=== PATIENT | male | born 1975 | race Caucasian/White ===

== ENCOUNTER 2023-04-10 01:50 | Emergency (ER) | payer MEDICAID ==
[~2023-04-10] VITALS: Ht 175.3 cm; Wt 83.9 kg
--- OUTSIDE RECORDS SUMMARY | 2023-04-10 01:59 | XMS ---
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 - 2 Visits in 30 Days CARE PROVIDERS There are no care providers on record at this time. Chong has no Care Guidelines for this patient. [facility]12 MO[facility] NOTE: Visits indicate total known visits. ED/C VISIT TRACKING (12 MO.) 04/10/2023 01:[address] [facility] [place] TYPE: Emergency COMPLAINT: - ABD PAIN 04/09/2023 22:32 [facility] [place] TYPE: Emergency COMPLAINT: - LT SIDE PAIN INPATIENT VISIT TRACKING (12 MO.) No inpatient visits to display in this time frame [id number]
[2023-04-10 02:40] LABS: BASOPHILS 0.7 % (0-2); EOSINOPHILS 2.1 % (0-6); HEMATOCRIT 37.7 % (35.0-50.0); HEMOGLOBIN 12.6 g/dL (12.0-18.0); LYMPHOCYTES 24.5 % (24-44); MCH 28.9 (27-36); MCHC 33.4 g/dl (30-36); MCV 86.5 fl (81-99); MONOCYTES 10.8 % (0-12); NEUTROPHILS 61.9 % (39-80); PLATELET COUNT 238 K/uL (140-440); RBC 4.36 M/ul (4.3-5.7); RDW 13.8 (10.5-15.0)
[2023-04-10 02:53] LABS: ALBUMIN 3.6 g/dL (3.4-5.0); ANION GAP 9.4 (7-21); BILIRUBIN, TOTAL 0.4 ng/dL (0.2-1.0); BUN/CREATININE RATIO 17.69 (6.0-28.6); CALCIUM 8.9 mg/dL (8.5-10.1); CREATININE, SERUM 1.13 mg/dL (0.70-1.30); POTASSIUM 3.4 mmol/L (3.5-5.1); PROTEIN, TOTAL 7.2 g/dL (6.4-8.2)
[2023-04-10 02:59] LABS: BILIRUBIN, URINE NEGATIVE (negative); BLOOD/HGB, URINE TRACE-I (Negative); KETONE, URINE NEGATIVE (Negative); LEUK ESTERASE, URINE NEGATIVE (negative); NITRITE, URINE NEGATIVE (negative)
[2023-04-10 03:07] LABS: EPITHELIAL CELLS, URINE SQUAMOUS 1+ /lpf (0-1+); WHITE BLOOD CELLS, URINE 0-1 /HPF (0-5)
[2023-04-10 03:08] LABS: BACTERIA, URINE RARE /hpf (negative); CASTS, URINE NONE SEEN \\lpf; CRYSTALS, URINE AMORPHOUS PHOSPH 4+ (0-1+); REFLEX CULTURE, URINE No (No)
[2023-04-10 03:14] LABS: AMPHETAMINES, URINE POSITIVE (NEGATIVE); BARBITURATES, URINE NEGATIVE (NEGATIVE); BENZODIAZEPINE, URINE NEGATIVE (NEGATIVE); BUPRENORPHINE, URINE POSITIVE (NEGATIVE); CANNABINOID, URINE POSITIVE (NEGATIVE); COCAINE, URINE NEGATIVE (NEGATIVE); ECSTASY, URINE NEGATIVE (NEGATIVE); FENTANYL, URINE POSITIVE (NEGATIVE); METHADONE, URINE NEGATIVE (NEGATIVE); OPIATES, URINE NEGATIVE (NEGATIVE); OXYCODONE, URINE NEGATIVE (NEGATIVE); PHENCYCLIDINE, URINE NEGATIVE (NEGATIVE)
[2023-04-10] MEDS ORDERED: CYCLOBENZAPRINE HCL 10 MG TAB PO ONE (03:15)
[2023-04-10 03:30] VITALS: BP 150/93
[2023-04-10] MEDS ORDERED: NALOXONE 4 MG NASAL SPRAY #2 HOME.PACK NAS ONE (03:30)
[2023-04-10] MEDS ORDERED: Buprenorphine/Naloxone 8/2mg 1 EACH HOME.PACK SL ONE (03:30)
[2023-04-10] MEDS ORDERED: ONDANSETRON 4 MG HOME.PACK SL ONE (04:30)
== END 2023-04-10 03:36 | disposition home or self-care (01) ==
LOC: ED 01:50
PROVIDERS: Family Medicine
DX: F11.23 Opioid dependence with withdrawal (principal); Z88.5 Allergy status to narcotic agent; Z88.8 Allergy status to other drugs, medicaments and biological substances
CPT/HCPCS: 36415; 80053; 80307; 81001; 85025; 99284; A9270; J3490

== ENCOUNTER 2023-04-10 04:18 | Emergency (ER) | payer MEDICAID ==
[~2023-04-10] VITALS: Ht 175.3 cm; Wt 83.9 kg
--- OUTSIDE RECORDS SUMMARY | 2023-04-10 04:22 | XMS ---
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 Chong has no Care Guidelines for this patient. Yenny VISIT COUNT (12 MO.) 3 [facility] [facility] TOTAL 3 NOTE: Visits indicate total known visits. ED/C VISIT TRACKING (12 MO.) [facility] [place] [facility] COMPLAINT: - SOB 04/10/2023 01:51 [facility] [place] TYPE: Emergency COMPLAINT: - ABD PAIN 04/09/2023 22:32 [facility] [place] TYPE: Emergency COMPLAINT: - LT SIDE PAIN INPATIENT VISIT TRACKING (12 MO.) No inpatient visits to display in this time frame [id number]
[2023-04-10 04:39] VITALS: BP 180/111
== END 2023-04-10 04:31 | disposition left against medical advice (07) ==
LOC: ED 04:18
DX: R07.9 Chest pain, unspecified (principal); Z53.29 Procedure and treatment not carried out because of patient's decision for other reasons; Z88.6 Allergy status to analgesic agent; Z88.8 Allergy status to other drugs, medicaments and biological substances
CPT/HCPCS: 80053; 84484; 85025; A9270

== ENCOUNTER 2023-04-10 09:28 | Emergency (ER) | payer MEDICAID ==
[~2023-04-10] VITALS: Ht 175.3 cm; Wt 84.2 kg
--- OUTSIDE RECORDS SUMMARY | 2023-04-10 09:36 | XMS ---
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 Chong has no Care Guidelines for this patient. [facility]12 MO[facility] NOTE: Visits indicate total known visits. ED/C VISIT TRACKING (12 MO.) 04/10/2023 09:[address] [facility] [place] TYPE: Emergency COMPLAINT: - MEDICAL CLEARANCE 04/10/2023 04:19 [facility] [place] TYPE: Emergency COMPLAINT: - SOB 04/10/2023 01:51 [facility] [place] TYPE: Emergency COMPLAINT: - ABD PAIN 04/09/2023 22:32 [facility] [place] TYPE: Emergency COMPLAINT: - LT SIDE PAIN INPATIENT VISIT TRACKING (12 MO.) No inpatient visits to display in this time frame [id number]
[2023-04-10 10:46] VITALS: BP 164/96
== END 2023-04-10 10:40 | disposition home or self-care (01) ==
LOC: ED 09:28
DX: F19.10 Other psychoactive substance abuse, uncomplicated (principal); F15.10 Other stimulant abuse, uncomplicated; F12.10 Cannabis abuse, uncomplicated; Z88.6 Allergy status to analgesic agent; Z88.8 Allergy status to other drugs, medicaments and biological substances
CPT/HCPCS: 99283